=== PATIENT | female | born 1965 | race Two or more races ===

== ENCOUNTER → 2019-12-19 | Outpatient (CLI) | payer OTHER ==
[~2019-12-19] MED LIST: ALPR0.5T PO; BUPR100T99 PO; DULO30CA2 PO
== END | disposition home or self-care (01) ==
LOC: WOU 12:30
PROVIDERS: ATTEND Surgery
DX: Z48.3 Aftercare following surgery for neoplasm (principal); C50.919 Malignant neoplasm of unspecified site of unspecified female breast; L59.8 Other specified disorders of the skin and subcutaneous tissue related to radiation; T86.828 Other complications of skin graft (allograft) (autograft); Z90.13 Acquired absence of bilateral breasts and nipples
CPT/HCPCS: G0463

== ENCOUNTER 2020-02-10 10:32 | Emergency (ER) | payer OTHER ==
[~2020-02-10] VITALS: Ht 165.1 cm; Wt 77.6 kg
[2020-02-10 10:45] VITALS: BP 130/86
--- NOTE | 2020-02-10 11:17 | NUR ---
COVID SWAB SENT TO LAB. A/OX4, NO RESP DISTRESS. Patient discharged to home in stable condition. Written and verbal after care instructions given. Patient verbalizes understanding of instruction.
--- NOTE | 2020-02-12 03:51 | NUR ---
LAB CALLED REGARDING COVID TEST RESULTS. PT NEGATIVE.
== END 2020-02-10 11:18 | disposition home or self-care (01) ==
LOC: ER 10:39
DX: R43.8 Other disturbances of smell and taste (principal); Z20.828 Contact with and (suspected) exposure to other viral communicable diseases; Z85.3 Personal history of malignant neoplasm of breast; M79.7 Fibromyalgia; Z79.899 Other long term (current) drug therapy
CPT/HCPCS: 99283; C9803; U0003

== ENCOUNTER 2020-02-19 09:45 | Outpatient (CLI) | payer OTHER | END 2020-02-19 23:59 | disposition home or self-care (01) | LOC: WOU 09:45 | PROVIDERS: ATTEND Specialist | DX: H53.8 Other visual disturbances (principal); L59.8 Other specified disorders of the skin and subcutaneous tissue related to radiation; Y84.2 Radiological procedure and radiotherapy as the cause of abnormal reaction of the patient, or of later complication, without mention of misadventure at the time of the procedure; N65.1 Disproportion of reconstructed breast; Z85.3 Personal history of malignant neoplasm of breast | CPT/HCPCS: G0463 ==